=== PATIENT | male | born 1975 | race Caucasian/White ===

== ENCOUNTER 2018-02-21 18:10 | Emergency (ER) | payer OTHER ==
[2018-02-21 18:30] VITALS: BP 154/102; PULSE 87; TEMP 98.4; BMI 26.6
--- NOTE | 2018-02-21 18:55 | PDOC ---
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 Multiple guards were trying to restrain her in leg restraints when she started flailing, kicking and spitting. Denies head trauma, LOC, numbness/weakness in the extremities, saddle anesthesia, saddle anesthesia or gait changes. Past History - Travel Traveled outside of the country in the last 30 days: No Close contact w/someone who was outside of country & ill: No - Past Medical History Allergies/Adverse Reactions: Allergies Allergy/AdvReac Type Severity Reaction Status Date / Time cyclobenzaprine HCl AdvReac Verified 02/21/18 18:18 [From [facility]] Home Medications: Ambulatory Orders Ibuprofen 800 mg PO TID #30 tablet 02/21/18 COPD: No Other medical history: DENIES. - Surgical History Abdominal Surgery: Yes (HERNIA.) - Suicide/Smoking/Psychosocial Hx Smoking History: Current every day smoker Have you smoked in the past 12 months: Yes Number of Cigarettes Smoked Daily: 10 Information on smoking cessation initiated: No 'Breaking Loose' booklet given: 06/13/16 Hx Alcohol Use: No Drug/Substance Use Hx: No Substance Use Type: None Review of Systems - Review of Systems Able to Perform ROS?: Yes Comments:: 02/21/18 18:55 CONSTITUTIONAL: Absent: fever, chills, diaphoresis, generalized weakness, malaise, loss of appetite HEENT: Absent: rhinorrhea, nasal congestion, throat pain, throat swelling, difficulty swallowing, mouth swelling, ear pain, eye pain, visual Changes MUSCULOSKELETAL: Present: upper back pain Absent: myalgia, arthralgia, joint swelling SKIN: Absent: rash, itching, pallor NEUROLOGIC: Absent: headache, focal weakness or paresthesias, dizziness, unsteady gait, seizure, mental status changes, bladder or bowel incontinence Is the patient limited Peruvian proficient: No *Physical Exam - Vital Signs Last Vital Signs Temp Pulse Resp BP Pulse Ox 98.4 F 87 19 154/102 97 02/21/18 18:18 02/21/18 18:18 02/21/18 18:18 02/21/18 18:18 02/21/18 18:18 - Physical Exam Comments: 02/21/18 18:55 GENERAL: Well developed, well nourished. Awake and alert. No acute distress. NECK: Supple. Full ROM. No JVD. Carotid pulses 2+ and symmetric, without bruits. No thyromegaly. No lymphadenopathy MUSCULOSKELETAL TTP of upper back, midline tenderness at the level of T8 with associated paraspinous tenderness b/l. Normal range of motion at all joints. No CVA tenderness. EXTREMITIES: No cyanosis. No clubbing. No edema. No calf tenderness. SKIN: Warm and dry. Normal capillary refill. No rashes. No jaundice. NEUROLOGICAL: Alert, awake, appropriate. Cranial nerves 2-12 intact. No deficits to light touch and temperature in face, upper extremities and lower extremities. No motor deficits in the in face, upper extremities and lower extremities. Normoreflexic in the upper and lower extremities. Normal speech. Toes are down- going bilaterally. Gait is normal without ataxia. PSYCHIATRIC: Cooperative. Good eye contact. Appropriate mood and affect. Medical Decision Making - Medical Decision Making 02/21/18 19:02 Pt. is a 43 y/o M who presents with upper back pain after trying to restrain a prisoner. No gross neurological deficits. VSS, pt afebrile. Most likely a muscle spasm. Pt. given ibuprofen with relief. Will f/u with employee health. Return precautions given. Pt understands all dc instructions and all questions were answered. *DC/Admit/Observation/Transfer Diagnosis at time of Disposition: Back pain Qualifiers: Back pain location: thoracic back pain Chronicity: acute Back pain laterality: midline Qualified Code(s): M54.6 - Pain in thoracic spine - Discharge Dispostion Disposition: HOME Condition at time of disposition: Stable Decision to Admit order: No - Prescriptions Prescriptions: Ibuprofen 800 mg PO TID #30 tablet - Referrals Referrals: Haja Person MD [Staff Physician] - - Patient Instructions Printed Discharge Instructions: DI for Thoracic Back Pain Additional Instructions: You have back pain due to a muscle spasm. Please take ibuprofen 800 mg 3 times a day not to exceed 3000 mg a day. You may use warm compresses on your back to help with her symptoms. Please follow-up with your primary care doctor. If your symptoms do not resolve in 3-5 days, follow-up with orthopedics. A referral has been provided for you. Return to the emergency department if you have worsening back pain, bladder or bowel incontinence, numbness and tingling in her legs, changes in the way you walk, or any new or worsening symptoms. - Post Discharge Activity Forms/Work/School Notes: Back to Work
[2018-02-21] MEDS ORDERED: IBUPROFEN 400 MG TABLET (FP) PO ONE ×2 (19:07→19:09)
== END 2018-02-21 19:11 | disposition home or self-care (01) ==
LOC: JERFT 18:10
DX: S23.3XXA Sprain of ligaments of thoracic spine, initial encounter (principal); Y35.811A Legal intervention involving manhandling, law enforcement official injured, initial encounter; Y93.89 Activity, other specified; Y92.89 Other specified places as the place of occurrence of the external cause; Y99.0 Civilian activity done for income or pay
CPT/HCPCS: 99281-25

== ENCOUNTER 2021-02-16 18:58 | Emergency (ER) | payer OTHER ==
[2021-02-16 19:10] VITALS: TEMP 99.1; BMI 27.7
[2021-02-16 21:03] VITALS: BP 146/106; PULSE 66
== END 2021-02-16 21:01 | disposition home or self-care (01) ==
LOC: FER 18:58
DX: S43.402A Unspecified sprain of left shoulder joint, initial encounter (principal)
CPT/HCPCS: 73030-TC-LT-FY; 99283-25

== ENCOUNTER 2024-04-29 18:14 | Emergency (ER) | payer OTHER ==
[2024-04-29 18:35] VITALS: BP 164/98; PULSE 89; RESP 16; TEMP 97.8; BMI 26.4
[2024-04-29] MEDS ORDERED: KETOROLAC TROMETHAMINE 60 MG/2 ML VIAL ONE (19:18)
[2024-04-29] MEDS: KETOROLAC TROMETHAMINE 60 MG/2 ML VIAL IM ONE (19:26)
[2024-04-29] MEDS: METHOCARBAMOL 750 MG TAB PO STA (19:29)
== END 2024-04-29 21:15 | disposition home or self-care (01) ==
LOC: FER 18:14
PROC: 3E0233Z Introduction of Anti-inflammatory into Muscle, Percutaneous Approach (ICD-10-PCS; principal; 2024-04-29)
DX: M54.12 Radiculopathy, cervical region (principal); R22.1 Localized swelling, mass and lump, neck
CPT/HCPCS: 72125-TC; 73030-TC-LT-FY; 99284-25